=== PATIENT | female | born 1995 | race African-American/Black ===

== ENCOUNTER 2023-05-31 16:03 | Emergency (ER) | payer OTHER ==
[~2023-05-31] VITALS: Ht 172.7 cm; Wt 93.9 kg
[2023-05-31] MEDS ORDERED: ST. JOHN'S WOR350 MG (16:45)
[2023-05-31] MEDS ORDERED: KETOROLAC TROMETHAMINE 30 MG VIAL IM STA (18:02)
[2023-05-31] MEDS ORDERED: ORPHENADRINE CITRATE 30 MG/ML AMPUL IM STA (18:02)
== END 2023-05-31 19:42 | disposition home or self-care (01) ==
LOC: ER 16:03
DX: M25.512 Pain in left shoulder (principal); Z91.040 Latex allergy status